=== PATIENT | female | born 1980 | race Caucasian/White ===

== ENCOUNTER 2016-08-25 13:22 | Emergency (ER) | payer OTHER, BC ==
[~2016-08-25] VITALS: Ht 162.6 cm; Wt 70.7 kg
[~2016-08-25 13:22] MED LIST: PERCOCET 5/31 TABLET PO
[2016-08-25] MEDS ORDERED: NORGESTIMATE-E1 EACH PO (15:51)
[2016-08-25] MEDS ORDERED: HYDROCHLOROTHIA25 MG PO (15:51)
[2016-08-25] MEDS ORDERED: LEVOTHYROXINE25 MCG PO (15:51)
[2016-08-25] MEDS ORDERED: ALPRAZOLAM0.25 M2 PO (15:51)
[2016-08-25 17:08] LABS: HEMATOCRIT 38.1 % (36.0-46.0); MCH 28.9 PG (29.0-34.0); MCHC 34.4 G/DL (30.0-36.0); MCV 84.1 FL (83-99); MEAN PLAT.VOLUME 9.2 uM^3 (9.5-12.4); PLATELET COUNT 339 K/uL (156-360); RBC DIS.WIDTH-CV 13.3 % (11.8-14.6); RED BLOOD COUNT 4.53 M/uL (3.80-5.20); WHITE BLOOD COUNT 7.9 K/uL (4.1-10.2)
[2016-08-25 17:17] LABS: CHLORIDE 102 mEq/L (99-109); POTASSIUM 3.1 mEq/L (3.7-5.4); SODIUM 138 mEq/L (136-147)
[2016-08-25 17:20] LABS: GLUCOSE 87 mg/dL (70-99)
[2016-08-25 17:21] LABS: ANION GAP 12 MEQ/L (2-14)
[2016-08-25 17:22] LABS: TOTAL BILIRUBIN 0.3 mg/dL (0.0-1.0)
[2016-08-25 17:23] LABS: ALKALINE PHOSPHATASE 72 IU/L (3-129)
[2016-08-25 17:24] LABS: GFR ESTIMATE (CALCULATED) > 59 mL/min/
[2016-08-25 17:25] LABS: UREA NITROGEN (BUN) 12 mg/dL (9-23)
[2016-08-25 17:27] LABS: LIPASE 83 U/L (1.0-51.0)
[2016-08-25 17:33] LABS: QUANTITATIVE HCG < 4.0 MIU/ML
[2016-08-25] MEDS ORDERED: K-DUR10 MEQ PO (19:18)
[2016-08-25 19:27] LABS: ADD MIUA? NO; BILIRUBIN NEGATIVE; BLOOD NEGATIVE; COLOR YELLOW ((YELLOW)); GLUCOSE (STRIP) NEGATIVE; KETONES 15; LEUKOCYTES NEGATIVE; NITRITE NEGATIVE; PH, URINE 7.5 (5-8); PROTEIN (STRIP) NEGATIVE; SPECIFIC GRAVITY 1.041 (1.000-1.030); UROBILINOGEN 0.2 MG/DL (0.2-1.0)
[2016-08-25] MEDS ORDERED: ULTRACET1 TABLET PO (19:38)
[2016-08-25] MEDS ORDERED: MOTRIN800 MG PO (19:38)
[2016-08-25 20:15] VITALS: BP 118/71
== END 2016-08-25 20:18 | disposition home or self-care (01) ==
LOC: EME 13:22
PROVIDERS: Physician Assistant
DX: Z04.1 Encounter for examination and observation following transport accident (principal); R10.11 Right upper quadrant pain; K76.89 Other specified diseases of liver; E87.6 Hypokalemia; E86.0 Dehydration; M54.5 Low back pain; R51 Headache; Z87.891 Personal history of nicotine dependence
CPT/HCPCS: 74177; 80053; 81003; 83690; 84702; 85027; 99281; 99284; J7030